=== PATIENT | male | born 1930 ===

== ENCOUNTER 2019-09-23 09:51 | Inpatient (IN) ==
[2019-09-23] MEDS ORDERED: *HR* HYDROmorphone PF 0.5 MG/0.5 ML SYRINGE IVP PRN (10:34)
[2019-09-23] MEDS ORDERED: Ondansetron 4 MG/2 ML VIAL IVP ONE (10:34)
[2019-09-23] MEDS ORDERED: *HR* Promethazine 25 MG/ML VIAL IVP PRN (10:34)
[2019-09-23] MEDS ORDERED: *HR* OxyCODONE Immed Rel 5 MG TABLET PO PRN (10:34)
[2019-09-23] MEDS ORDERED: *HR* FentaNYL (PF) 100 MCG/2 ML VIAL ONE (10:42)
[2019-09-23] MEDS ORDERED: Lidocaine -MPF 2% 2 ML VIAL ONE ×2 (10:43→12:06)
[2019-09-23] MEDS ORDERED: *HR* Propofol 200 MG/20 ML VIAL IVP ONE (10:43)
[2019-09-23] MEDS ORDERED: Dexamethasone 4 MG/ML VIAL ONE (10:45)
[2019-09-23] MEDS ORDERED: Ondansetron 4 MG/2 ML VIAL ONE (10:45)
[2019-09-23] MEDS ORDERED: *HR* Succinylcholine 200 MG/10 ML VIAL IVP ONE (10:45)
[2019-09-23] MEDS ORDERED: CeFAZolin Syr 2,000MG/20 ML 2,000 MG/20 ML SYRINGE IVPB ONE (11:24)
[2019-09-23] MEDS ORDERED: ceFAZolin 1,000 MG, Sodium Chloride IRRigation 1,000 ML IR ONE (11:25)
[2019-09-23] MEDS ORDERED: Ringers Solution, Lactated 1,000 ML IVC SCH (11:30)
[2019-09-23] MEDS ORDERED: Acetaminophen IV 1,000 MG/100 ML INFUS..BTL ONE (12:05)
[2019-09-23] MEDS ORDERED: Heparin 1,000 UNITS/500 mL 500 ML ONE (12:06)
[2019-09-23] MEDS ORDERED: *HR* Etomidate 40 MG/20 ML VIAL IVP ONE (12:15)
[2019-09-23] MEDS ORDERED: *HR* PHENYLEPHRINE 1,000 MCG/10 ML SYRINGE IVP ONE (12:55)
[2019-09-23] MEDS ORDERED: *HR* Rocuronium Bromide 50 MG/5 ML VIAL ONE (13:12)
[2019-09-23] MEDS ORDERED: *HR* Phenylephrine 10 MG/ML VIAL ONE (13:38)
[2019-09-23] MEDS ORDERED: *HR* HYDROMORPHONE 2 MG/ML VIAL ONE ×2 (14:19→14:41)
[2019-09-23] MEDS ORDERED: Ondansetron ODT 4 MG TAB.RAPDIS SL PRN (17:10)
[2019-09-23] MEDS ORDERED: Nitroglycerin 0.4 MG TAB.SUBL SL PRN (17:10)
[2019-09-23] MEDS ORDERED: *HR* HYDROmorphone (PF) 1 MG/ML SYRINGE IVP PRN (17:10)
[2019-09-23] MEDS ORDERED: 0.9 % Sodium Chloride 500 ML IVC ONE (17:52)
[2019-09-23] MEDS: 0.9 % Sodium Chloride 1,000 ML IVC SCH (17:55)
[2019-09-23] MEDS: ceFAZolin 2,000 MG in 0.9 % Sodium Chloride 100 ML IVPB SCH (22:51)
[2019-09-23] MEDS: Insulin DETEMIR 100 UNIT/ML X5UNITS SQ SCH (22:52)
[2019-09-23] MEDS: cilostazoL 100 MG TABLET PO SCH (22:55)
[2019-09-24] MEDS: *HR* OxyCODONE/APAP 5/325 TABLET PO PRN ×3 (02:27→19:55)
[2019-09-24] MEDS: 0.9 % Sodium Chloride 1,000 ML IVC SCH ×2 (04:44→21:04)
[2019-09-24] MEDS: ceFAZolin 2,000 MG in 0.9 % Sodium Chloride 100 ML IVPB SCH ×2 (04:54→12:07)
[2019-09-24 04:57] LABS: Basophils % 0.1 %; Hemoglobin 7.9 g/dL (12.9-16.9); Immature Granulocytes % 0.6 % (0-4); Lymphocytes # 1.1 K/mcL (0.6-4.6); Lymphocytes % 7.2 %; Mean Corpuscular HGB Conc 31.6 g/dL (31.6-35.5); Mean Corpuscular Hemoglobin 24.1 pg (28.0-33.3); Mean Corpuscular Volume 76.2 fL (83.0-100.0); Mean Platelet Volume 11.3 fL (9.4-12.4); Monocytes # 0.6 K/mcL (0.0-1.3); Monocytes % 3.9 %; Neutrophils # 12.9 K/mcL (1.6-8.9); Platelet Count 325 K/mcL (140-400); Red Blood Count 3.28 M/mcL (4.19-5.50); Red Cell Distribution Width 16.5 % (11.5-14.5); Segmented Neutrophils % 88.2 %; White Blood Count 14.6 K/mcL (4.3-11.1)
[2019-09-24 05:11] LABS: BUN/Creatinine Ratio 40 (6-26); Blood Urea Nitrogen 51 mg/dL (8-23); Calcium 8.3 mg/dL (8.6-10.3); Carbon Dioxide 23 mEq/L (23-29); Chloride 97 mEq/L (98-107); Glucose 321 mg/dL (70-105); Osmolality,Calculated 298 (280-300); Potassium 4.7 mEq/L (3.5-5.1); Sodium 131 mEq/L (136-145); eGFR For African Americans > 60 (> 60); eGFR For Non-African Americans 54 (> 60)
[2019-09-24] MEDS: Finasteride 5 MG TABLET PO SCH (07:44)
[2019-09-24] MEDS: cilostazoL 100 MG TABLET PO SCH ×2 (07:45→19:55)
[2019-09-24] MEDS: Insulin DETEMIR 100 UNIT/ML X5UNITS SQ SCH ×2 (08:23→19:57)
[2019-09-24] MEDS ORDERED: Dextrose Gel 15 GM/37.5 ML TUBE PO PRN ×2 (14:07)
[2019-09-24] MEDS ORDERED: D5% in Water 1,000 ML IVC PRN (14:07)
[2019-09-24] MEDS ORDERED: *HR* Dextrose 50 % in Water (Syg) 50 ML SYRINGE IVP PRN (14:07)
[2019-09-24] MEDS: Insulin LISPRO 300 UNITS/3 ML VIAL SQ SCH ×2 (18:30→19:56)
[2019-09-25] MEDS: *HR* OxyCODONE/APAP 5/325 TABLET PO PRN ×3 (05:31→20:59)
[2019-09-25] MEDS: Insulin LISPRO 300 UNITS/3 ML VIAL SQ SCH ×4 (08:31→19:55)
[2019-09-25] MEDS: Finasteride 5 MG TABLET PO SCH (08:34)
[2019-09-25] MEDS: cilostazoL 100 MG TABLET PO SCH ×2 (08:34→19:53)
[2019-09-25] MEDS: Insulin DETEMIR 100 UNIT/ML X5UNITS SQ SCH (09:29)
[2019-09-25] MEDS: 0.9 % Sodium Chloride 1,000 ML IVC SCH (13:53)
[2019-09-26 07:12] VITALS: BP 147/67
[2019-09-26] MEDS: Finasteride 5 MG TABLET PO SCH (07:40)
[2019-09-26] MEDS: cilostazoL 100 MG TABLET PO SCH (07:41)
[2019-09-26] MEDS: Insulin LISPRO 300 UNITS/3 ML VIAL SQ SCH (07:42)
== END 2019-09-26 10:49 | DRG 240 ==
LOC: SAMDAY 09:51 → 3NENU 17:04
PROVIDERS: ADMIT Surgery Vascular Surgery; ATTEND Surgery Vascular Surgery

== ENCOUNTER 2019-12-15 11:57 | Inpatient (IN) ==
[2019-12-15] MEDS ORDERED: *HR* Propofol 200 MG/20 ML VIAL IVP ONE ×2 (12:10→15:39)
[2019-12-15] MEDS ORDERED: *HR* FentaNYL (PF) 100 MCG/2 ML VIAL ONE (12:10)
[2019-12-15] MEDS ORDERED: Lidocaine HCL 4 ML Topical Solution (Laryng-O-Jet Kit Sterile Pak) TP ONE (12:11)
[2019-12-15] MEDS ORDERED: *HR* Succinylcholine 200 MG/10 ML VIAL IVP ONE (12:11)
[2019-12-15] MEDS ORDERED: Ondansetron 4 MG/2 ML VIAL ONE (12:11)
[2019-12-15] MEDS ORDERED: Lidocaine -MPF 2% 2 ML VIAL ONE (12:11)
[2019-12-15] MEDS ORDERED: Dexamethasone 4 MG/ML VIAL ONE (12:11)
[2019-12-15] MEDS ORDERED: CeFAZolin Syr 2,000MG/20 ML 2,000 MG/20 ML SYRINGE IVPB ONE (12:19)
[2019-12-15] MEDS ORDERED: Ringers Solution, Lactated 1,000 ML IVC SCH (12:30)
[2019-12-15] MEDS ORDERED: *HR* PHENYLEPHRINE 1,000 MCG/10 ML SYRINGE IVP ONE (12:39)
[2019-12-15] MEDS ORDERED: EPHEDrine 50 MG/ML VIAL ONE (12:40)
[2019-12-15] MEDS ORDERED: ceFAZolin 1,000 MG, Sodium Chloride IRRigation 1,000 ML IR ONE (13:00)
[2019-12-15] MEDS ORDERED: Ondansetron 4 MG/2 ML VIAL IVP ONE (13:28)
[2019-12-15] MEDS ORDERED: *HR* OxyCODONE Immed Rel 5 MG TABLET PO PRN (13:28)
[2019-12-15] MEDS ORDERED: D5% in Water 250 ML ONE (14:02)
[2019-12-15] MEDS ORDERED: *HR* HYDROMORPHONE 2 MG/ML VIAL ONE (14:41)
[2019-12-15] MEDS: *HR* HYDROmorphone PF 0.5 MG/0.5 ML SYRINGE IVP PRN ×3 (16:09→16:28)
[2019-12-15] MEDS ORDERED: Nitroglycerin Spray 4.9 GM BOTTLE SL PRN (17:36)
[2019-12-15] MEDS: 0.9 % Sodium Chloride 1,000 ML IVC SCH (18:34)
[2019-12-15] MEDS: CeFAZolin 2 GM/120 ML BAG IVPB SCH ×2 (18:35→23:48)
[2019-12-15] MEDS: *HR* OxyCODONE/APAP 5/325 TABLET PO PRN ×2 (20:31→23:59)
[2019-12-15] MEDS: cilostazoL 100 MG TABLET PO SCH (21:13)
[2019-12-15] MEDS: Insulin DETEMIR 100 UNIT/ML X5UNITS SQ SCH (21:16)
[2019-12-16] MEDS: Ondansetron 4 MG/2 ML VIAL IVP PRN (03:35)
[2019-12-16 05:28] LABS: Basophils % 0.2 %; Eosinophils % 0.1 %; Hematocrit 27.8 % (37.5-50.1); Hemoglobin 8.5 g/dL (12.9-16.9); Immature Granulocytes % 0.3 % (0-4); Lymphocytes # 3.1 K/mcL (0.6-4.6); Lymphocytes % 21.3 %; Mean Corpuscular HGB Conc 30.6 g/dL (31.6-35.5); Mean Corpuscular Hemoglobin 23.3 pg (28.0-33.3); Mean Corpuscular Volume 76.2 fL (83.0-100.0); Monocytes % 7.3 %; Neutrophils # 10.1 K/mcL (1.6-8.9); Platelet Count 303 K/mcL (140-400); Red Blood Count 3.65 M/mcL (4.19-5.50); Red Cell Distribution Width 19.4 % (11.5-14.5); Segmented Neutrophils % 70.8 %; White Blood Count 14.3 K/mcL (4.3-11.1)
[2019-12-16 05:39] LABS: BUN/Creatinine Ratio 27 (6-26); Blood Urea Nitrogen 32 mg/dL (8-23); Calcium 8.9 mg/dL (8.6-10.3); Carbon Dioxide 26 mEq/L (23-29); Chloride 102 mEq/L (98-107); Glucose 173 mg/dL (70-105); Osmolality,Calculated 291 (280-300); Sodium 135 mEq/L (136-145); eGFR For African Americans > 60 (> 60); eGFR For Non-African Americans 57 (> 60)
[2019-12-16] MEDS: CeFAZolin 2 GM/120 ML BAG IVPB SCH (08:10)
[2019-12-16] MEDS: *HR* OxyCODONE/APAP 5/325 TABLET PO PRN (08:10)
[2019-12-16] MEDS: cilostazoL 100 MG TABLET PO SCH ×2 (08:11→21:10)
[2019-12-16] MEDS: Finasteride 5 MG TABLET PO SCH (08:11)
[2019-12-16] MEDS: Insulin DETEMIR 100 UNIT/ML X5UNITS SQ SCH ×2 (08:17→21:10)
[2019-12-16] MEDS: 0.9 % Sodium Chloride 1,000 ML IVC SCH (11:54)
[2019-12-16] MEDS: *HR* OxyCODONE/APAP 7.5/325 TABLET PO PRN (21:18)
[2019-12-17] MEDS: Ondansetron 4 MG/2 ML VIAL IVP PRN (01:57)
[2019-12-17] MEDS: *HR* OxyCODONE/APAP 7.5/325 TABLET PO PRN (02:15)
[2019-12-17] MEDS: 0.9 % Sodium Chloride 1,000 ML IVC SCH (03:29)
[2019-12-17] MEDS ORDERED: *HR* OxyCODONE/APAP 10/325 TABLET PO PRN (04:00)
[2019-12-17] MEDS ORDERED: *HR* OxyCODONE/APAP 5/325 TABLET PO PRN (04:00)
[2019-12-17 07:18] VITALS: BP 136/60
[2019-12-17] MEDS: Finasteride 5 MG TABLET PO SCH (08:20)
[2019-12-17] MEDS: cilostazoL 100 MG TABLET PO SCH (08:20)
[2019-12-17] MEDS: Insulin DETEMIR 100 UNIT/ML X5UNITS SQ SCH (08:21)
[2019-12-17] MEDS ORDERED: *HR* HYDROmorphone (PF) 1 MG/ML SYRINGE IVP ONE (09:15)
== END 2019-12-17 12:17 | DRG 241 ==
LOC: SAMDAY 11:57 → 2NNU 17:13
PROVIDERS: ADMIT Surgery Vascular Surgery; ATTEND Surgery Vascular Surgery